=== PATIENT | female | born 1955 | race Caucasian/White ===

== ENCOUNTER 2017-10-28 22:16 | Inpatient (IN) ==
[2017-10-29] MEDS ORDERED: Sod Chloride 0.9% Inj 1,000 ML IV.SIG ONE (00:18)
--- NOTE | 2017-10-29 00:22 | ED ---
HPI General Chief complaint: Nausea/Vomiting/Diarrhea Stated complaint: Vomitting x1Day Time Seen by Provider: 10/29/17 00:18 Source: patient Mode of arrival: ambulatory Limitations: no limitations History of Present Illness HPI Narrative: Well-developed well-nourished female in no acute distress no respiratory distress presents because of multiple episodes of vomiting today. No fever no chills patient has had nausea has had vomiting no coffee-ground emesis no hematemesis has noted some bilious emesis. No diarrhea no constipation. Patient's had good urine output. Patient has history of previous colon cancer with partial resection and cholecystectomy and appendectomy. Patient denies chest pain shortness of breath referred neck jaw back shoulder arm pain. Patient states she has had colonoscopy and double balloon enteroscopy. Patient states studies were unremarkable. Patient reports that 1 day she has had vomiting and contacted her [facility] physician who stated she was most likely dehydrated and she go to the hospital for hydration. Patient's had multiple abdominal surgeries. Patient describes emesis as bilious not fecal. Patient denies other concerns or complaints. Discomfort is moderate. MD complaint: nausea and vomiting Onset (ago): day(s) Description of Vomiting: bilious Description of Diarrhea: none Associated Abdominal Pain: Yes Location of pain: diffuse, LUQ and LLQ Severity: moderate Pain Consistency: constant Relieving factors: none Exacerbating factors: none Associated symptoms: denies other symptoms Related Data Home Medications Medication Instructions Recorded Confirmed No Known Home Medications 10/28/17 10/28/17 Allergies Allergy/AdvReac Type Severity Reaction Status Date / Time propoxyphene [From Darvon] AdvReac Vomiting Verified 10/28/17 23:41 Review of Systems ROS: all other systems reviewed are negative PMFSH History History Provided By: Patient (Colon cancer partial colectomy cholecystectomy appendectomy) Social History Social History Second Hand Smoke Exposure: No Smoking Status: Never smoker How Often Do You Have a Drink Containing Alcohol: Never Recent Travel in [place] within the Last 8 Weeks: No Recent Out of Country Travel within the Last 8 Weeks: No Immunization History Tetanus Immunization: <5 Years Exam Narrative Exam Narrative: GENERAL: Well-nourished, well-developed patient. SKIN: Focused skin assessment warm/dry. HEAD: Normocephalic. EYES: No scleral icterus. No injection or drainage. NECK: Supple, trachea midline. No JVD or lymphadenopathy. CARDIOVASCULAR: Regular rate and rhythm without murmurs, gallops, or rubs. RESPIRATORY: Breath sounds equal bilaterally. No accessory muscle use. GASTROINTESTINAL: Abdomen soft, mild diffuse tenderness to palpation without guarding or rebound or palpable pulsatile mass , nondistended. MUSCULOSKELETAL: No cyanosis, or edema. BACK: Nontender without obvious deformity. No CVA tenderness. Course Initial Documented Vital Signs Temperature 97.9 F 10/28/17 22:23 Pulse Rate 101 H 10/28/17 22:23 Respiratory Rate 14 10/28/17 22:23 Blood Pressure 132/69 10/28/17 22:23 Pulse Oximetry 98 10/28/17 22:23 Last Documented Vital Signs Temperature 97.9 F 10/28/17 22:23 Pulse Rate 101 H 10/28/17 22:23 Respiratory Rate 14 10/28/17 22:23 Blood Pressure 132/69 10/28/17 22:23 Pulse Oximetry 98 10/28/17 22:23 Medical Decision Making MDM Narrative Medical decision making narrative: 62-year-old female presents with 1 day of vomiting IV access obtained specimens collected and sent for resulting Patient administered IV fluid bolus and Zofran Patient given additional IV fluid bolus Patient complains of ongoing nausea and Reglan 10 mg a CBC is automated differential chemistries grossly normal range CT scan abdomen pelvis with IV contrast consistent with small bowel obstruction per reading radiologist Patient's case discussed with him Medical Screen Exam Complete: Yes Emergency Medical Condition: Yes Differential Diagnosis Differential Diagnosis: Bowel obstruction, dehydration, gastroenteritis, electrolyte disturbance, UTI, ischemic colitis, ACS Medical Records Medical records reviewed: Yes I reviewed the patient's medical records. Lab Data Lab results reviewed: Yes I reviewed the patient's lab results. Result diagrams: 10/29/17 00:22 10/29/17 00:22 Lab Results 10/28/17 10/29/17 10/29/17 Range/Units 00:24 00:22 00:22 CBC w Diff Auto diff final WBC 9.7 (4.0-11.0) th/mm3 RBC 4.15 (4.00-5.30) mil/mm3 Hgb 13.4 (11.6-15.3) gm/dL Hct 38.7 (35.0-46.0) % MCV 93.3 (80.0-100.0) fL MCH 32.4 (27.0-34.0) pg MCHC 34.7 (32.0-36.0) % RDW 12.6 (11.6-17.2) % Plt Count 375 (150-450) th/mm3 MPV 8.5 (7.0-11.0) fL Neut % (Auto) 81.0 H (16.0-70.0) % Lymph % (Auto) 11.7 (9.0-44.0) % [place] % (Auto) 6.7 (0.0-8.0) % Eos % (Auto) 0.5 (0.0-4.0) % Baso % (Auto) 0.1 (0.0-2.0) % Neut # (Auto) 7.9 H (1.8-7.7) th/mm3 Lymph # (Auto) 1.1 (1.0-4.8) th/mm3 [place] # (Auto) 0.7 (0.0-0.9) th/mm3 Eos # (Auto) 0.0 (0.0-0.4) th/mm3 Baso # (Auto) 0.0 (0.0-0.2) th/mm3 WBC Differential . Differential Comment . Sodium 135 L (136-145) meq/L Potassium 3.7 (3.5-5.1) meq/L Chloride 98 (98-107) meq/L Carbon Dioxide 26.4 (21.0-32.0) meq/L Anion Gap 11 (5-15) meq/L BUN 13 (7-18) mg/dL Creatinine 0.62 (0.50-1.00) mg/dL Estimated GFR Greater than 89 (>89) mL/min Random Glucose 93 (74-106) mg/dL Calcium 9.4 (8.5-10.1) mg/dL Total Bilirubin 0.6 (0.2-1.0) mg/dL AST 26 (15-37) U/L ALT 35 (10-53) U/L Alkaline Phosphatase 87 (45-117) U/L Troponin I Less than 0.02 L (0.02-0.05) ng/mL Total Protein 7.8 (6.4-8.2) g/dL Albumin 4.2 (3.4-5.0) g/dL Lipase 190 (73-393) U/L Urine Color Yellow (Yellw/Straw) Urine Clarity Clear (Clear) Urine pH 6.0 (5.0-8.5) Ur Specific [place] 1.020 (1.002-1.035) Urine Protein Trace (Neg-Trace) mg/dL Urine Glucose (UA) Negative (Negative) mg/dL Urine Ketones 40 H (Negative) mg/dL Urine Occult Blood Negative (Negative) Urine Nitrate Negative (Negative) Urine Bilirubin Negative (Negative) Urine Urobilinogen 0.2 (Less than 2) mg/dL Ur Leukocyte Esterase Moderate H (Negative) Urine RBC 0-3 (0-3) /hpf Urine WBC 6-8 H (0-5) /hpf Ur Squamous Epith Cells 0-5 (0-5) /hpf Amorphous Sediment Occ H (None) /hpf Hyaline Casts 0-3 (0-3) /lpf Urine Yeast Occasional H (None) /hpf Micro UA Comment Culture not ind Ur Microscopic Review Microscopic reviewed Urine Culture Comments Culture not ind Imaging Data Radiologist's impression: Abdomen/Pelvis CT 10/29/17 00:18 CONCLUSION: 1. Abnormally dilated loops of small bowel with air-fluid levels measuring up to 5 cm in size, suspicious for small bowel obstruction. 2. Multiple low density lesions in the liver measuring up to 2.9 cm. Evidence of right colon surgery. If there is history of colon cancer, these lesions would be suspicious for metastatic disease. Chest X-Ray 10/29/17 00:18 CONCLUSION: The lungs are clear. Discharge Plan Discharge Disposition Patient Disposition: 30 Still Patient Discharge Condition Condition: Stable Discharge Details Diagnosis: SBO (small bowel obstruction) Physicians Team ED Provider: Sammi Contreras Attending Provider: Abbey Borjas Other Providers: Markus Newman Status ED Status: Admitted Patient
[2017-10-29 00:36] LABS: Bilirubin,Urine Negative (Negative); Clarity,Urine Clear (Clear); Color,Urine Yellow (Yellw/Straw); Glucose,Urine (UA) Negative (Negative); Leukocyte Esterase,Urine Moderate (Negative); Nitrite,Urine Negative (Negative); Urobilinogen,Urine 0.2 mg/dL (Less than 2)
[2017-10-29 00:37] LABS: Baso % (Auto) 0.1 % (0.0-2.0); Eos % (Auto) 0.5 % (0.0-4.0); Hematocrit 38.7 % (35.0-46.0); Hemoglobin 13.4 gm/dL (11.6-15.3); Lymph # (Auto) 1.1 th/mm3 (1.0-4.8); Lymph % (Auto) 11.7 % (9.0-44.0); Mean Corpuscular HGB Conc 34.7 % (32.0-36.0); Mean Corpuscular Hemoglobin 32.4 pg (27.0-34.0); Mean Corpuscular Volume 93.3 fL (80.0-100.0); Mean Platelet Volume 8.5 fL (7.0-11.0); Mono # (Auto) 0.7 th/mm3 (0.0-0.9); Mono % (Auto) 6.7 % (0.0-8.0); Neut # (Auto) 7.9 th/mm3 (1.8-7.7); Platelet Count 375 th/mm3 (150-450); Red Blood Count 4.15 mil/mm3 (4.00-5.30); Red Cell Distribution Width 12.6 % (11.6-17.2); White Blood Count 9.7 th/mm3 (4.0-11.0)
[2017-10-29 00:43] LABS: Chloride 98 meq/L (98-107); Potassium 3.7 meq/L (3.5-5.1); Sodium 135 meq/L (136-145)
[2017-10-29 00:47] LABS: Albumin 4.2 g/dL (3.4-5.0); Anion Gap 11 meq/L (5-15); Blood Urea Nitrogen 13 mg/dL (7-18); Calcium 9.4 mg/dL (8.5-10.1); Carbon Dioxide 26.4 meq/L (21.0-32.0); Glucose,Random 93 mg/dL (74-106); Lipase 190 U/L (73-393)
[2017-10-29 00:48] LABS: Amorphous Sediment,Urine Occ /hpf; Hyaline Casts,Urine 0-3 /lpf (0-3); RBC,Urine 0-3 /hpf (0-3); Squamous Epithelial Cell,Urine 0-5 /hpf (0-5)
[2017-10-29 00:50] LABS: Alanine Aminotransferase 35 U/L (10-53); Aspartate Aminotransferase 26 U/L (15-37); Glomerular Filtration Rate Greater Than 89 mL/min (>89)
--- NOTE | 2017-10-29 00:50 | XR ---
EXAM DATE: 10/29/2017 12:46 AM EDT AGE/SEX: 62 years / Female INDICATIONS: Free air. CLINICAL DATA: This is the patient's initial encounter. Patient reports that signs and symptoms have been present for 1 day and indicates a pain score of 0/10. MEDICAL/SURGICAL HISTORY: None. Appendectomy. COMPARISON: No prior exams available for comparison. FINDINGS: A single AP view of the chest demonstrates the lungs to be symmetrically aerated without evidence of mass, infiltrate or effusion. The cardiomediastinal contours are unremarkable. Osseous structures a re intact. No evidence of free air underneath the MA diaphragms. CONCLUSION: The lungs are clear. Electronically signed by: Jace Deleon MD 10/29/2017 12:49 AM EDT
[2017-10-29 00:52] LABS: Total Protein 7.8 g/dL (6.4-8.2)
[2017-10-29 00:53] LABS: Alkaline Phosphatase 87 U/L (45-117)
--- NOTE | 2017-10-29 01:57 | CT ---
EXAM DATE: 10/29/2017 1:32 AM EDT AGE/SEX: 62 years / Female INDICATIONS: Left sided abdominal pain, and vomiting. CLINICAL DATA: This is the patient's initial encounter. Patient reports that signs and symptoms have been present for 1 day and indicates a pain score of 4/10. MEDICAL/SURGICAL HISTORY: None. Cholecystectomy. Colon resection. ORAL CONTRAST: No oral contrast ingested. RADIATION DOSE: 6.62 CTDI (mGy) COMPARISON: No prior exams available for comparison. TECHNIQUE: Multiple contiguous axial images were obtained through the abdomen and pelvis following b olus infusion of 93 ml Omnipaque 350 (iohexol) nonionic water-soluble contrast as a single exam dos e. No oral contrast ingested. Using automated exposure control and adjustment of the mA and/or kV ac cording to patient size, radiation dose was kept as low as reasonably achievable to obtain optimal di agnostic quality images. DICOM format image data is available electronically for review and comparis on. FINDINGS: Lower Lungs: The visualized lower lungs are clear. Liver: There are multiple low density lesions in the liver, the 2 largest located in the posterior se gment of the right lobe measuring 2.9 cm and 2.0 cm. There is also ill-defined focal calcific densiti es in the posterior segment of the liver tip which measure in aggregate. 1.2 cm. No biliary ductal di latation. Cholecystectomy. Spleen: Homogeneous density without enlargement. Pancreas: Unremarkable without mass or calcification. Kidneys: Normal in size and shape. No evidence of mass or hydronephrosis. 2.2 cm cyst upper pole rig ht kidney. Adrenal Glands: Unremarkable. Aorta: The aorta and proximal iliac vessels are grossly unremarkable without aneurysmal dilation. Bowel/Mesentery: Abnormally dilated loops of small bowel with air-fluid levels with small bowel loop s measuring up to 5 cm in size. No dilation of the colon. Mild amount of stool in the transverse and left colon. Anastomosis suture in the right upper quadrant. There is a moderate amount of free fluid in the dependent pelvis. Abdominal Wall: Intact. Retroperitoneum: No evidence of adenopathy in the retrocrural, para-aortic, or deep pelvic regions. Bladder: Contours are smooth. Reproductive Organs: No abnormal masses or calcifications seen. Inguinal: The inguinal region is unremarkable without evidence of adenopathy. Bony Structures: Bilateral pars defects at L5 without evidence of spondylolisthesis. CONCLUSION: 1. Abnormally dilated loops of small bowel with air-fluid levels measuring up to 5 cm in size, suspi cious for small bowel obstruction. 2. Multiple low density lesions in the liver measuring up to 2.9 cm. Evidence of right colon surgery . If there is history of colon cancer, these lesions would be suspicious for metastatic disease. Electronically signed by: Jace Dleeon MD 10/29/2017 1:55 AM EDT
[2017-10-29] MEDS ORDERED: Bisacodyl 10 MG Supp RECTAL PRN (02:46)
[2017-10-29] MEDS ORDERED: Morphine Inj 4 MG/ML Vial IV.PUSH ONE ×2 (02:53→06:46)
[2017-10-29] MEDS ORDERED: Sodium Chlor 0.9% Inj 500 ML IV.SIG SCH (03:00)
[2017-10-29] MEDS: Sod Chloride 0.9% Inj 1,000 ML IV.CONT SCH ×3 (03:30→23:45)
[2017-10-29] MEDS: Piperacil/Tazo 4.5 GM Premix 4.5 GM/100 ML BAG IV.SIG SCH ×4 (03:30→21:00)
--- NOTE | 2017-10-29 08:42 | P.HP ---
History of Present Illness Primary Care Physician: Rocky Duncan Chief Complaint: Nausea, vomiting History of Present Illness: 62-year-old female with known history of colon cancer with partial colectomy, history of liver lesions in which she is being followed by [facility]. Patient states that she is in normal state of health until yesterday when she started developing nausea, vomiting, abdominal pain. Patient was only able to try to tolerate liquids, however she was unsuccessful and was unable to keep anything down so she came to emergency department for evaluation. Patient had workup done and was found to have a small bowel obstruction. CT scan also elicited multiple lesions on the liver. Patient states that she is followed by [facility] and gets monitored frequently. Patient states that she has had multiple liver lesions in the past and states that at [facility] they did ablation and biopsy. She is notified that they were benign lesions. She is just at [facility] and had MRI evaluation done in July of this year and was told that there were no new lesions. Upon evaluating the patient today she is laying in bed. Obvious discomfort from the bowel obstruction. Patient states that at a different hospital they had tried to place an NG tube but were unsuccessful. Patient is deferring NG tube at this time. Patient states that she had a small bowel movement yesterday. States that her bowels are quite irregular and can tell me if that was normal for her or not. Patient denies any hematemesis, melena, hematochezia. - Diagnosis (1) Liver lesion (2) SBO (small bowel obstruction) Inpatient Certification: I certify that the inpatient services were ordered in accordance with Medicare regulations governing the order. This includes certification that hospital inpatient services are reasonable and necessary and in the case of services not specified as inpatient-only under 42 CFR 419.22(n), that they are appropriately provided as inpatient services in accordance to with the 2-midnight benchmark under 43 CFR 412.3(e) Estimated Total Length of Stay (Days): 2 Plans for Post Hospital Care: Not yet determined Review of Systems All other systems reviewed negative except as stated in HPI Gastrointestinal: Reports abdominal pain, Reports nausea, Reports vomiting PMFSH - History History Provided By: Patient (Colon cancer partial colectomy cholecystectomy appendectomy) - Medical History Medical History: Medical History (Last Reviewed 10/29/17 @ 08:42 by YOHANNES Baxter) Colon cancer History of chemotherapy Liver lesion - Surgical History Surgical History: Surgical History (Last Reviewed 10/29/17 @ 08:42 by YOHANNES Baxter) History of appendectomy History of cholecystectomy History of partial colectomy History of total adrenalectomy - Family History Family History: Family History (Last Updated 10/29/17 @ 08:28 by YOHANNES Baxter) Father History of lung cancer Mother Family history of Alzheimer's disease - Tobacco History Second Hand Smoke Exposure: No Tobacco Use In Past 30 Days: No Smoking Status: Never smoker - Alcohol History How Often Do You Have a Drink Containing Alcohol: Never - Substance Use History Substance History: No History of Abuse - Travel History Recent Travel in the [place] Within the Last 8 Weeks: No Recent Travel Out of the Country Within the Last 8 Weeks: No - Immunization History Tetanus Immunization: <5 Years Medications and Allergies Active Medications: Active Medications Al Hydroxide/Mg Hydroxide (Milk Of Magnesia Liq) 30 ml PO Q12H PRN PRN Reason: Mild Constipation Bisacodyl (Dulcolax Supp) 10 mg RECTAL DAILY PRN PRN Reason: SEVERE CONSITIPATION Sodium Chloride (Ns Inj) 1,000 mls @ 100 mls/hr IV.CONT .Q10H ESTELITA Last Infusion: 10/29/17 04:20 Dose: Infused Piperacillin/Tazobactam/Dextrose (Zosyn 4.5 Gm Premix) 4.5 gm in 100 mls @ 200 mls/hr IV.SIG Q6H ESTELITA Last Infusion: 10/29/17 04:19 Dose: Infused Sodium Chloride (Ns Inj) 500 mls @ 0 mls/hr IV.SIG BOLUS ESTELITA Lactulose (Lactulose Liq) 30 ml PO DAILY PRN PRN Reason: SEVERE CONSITIPATION Metoclopramide HCl (Reglan Inj) 5 mg IV.PUSH Q6HR PRN; Protocol PRN Reason: NAUSEA OR VOMITING Morphine Sulfate (Morphine Inj) 2 mg IV.PUSH Q3H PRN PRN Reason: abd pain 6-10 Ondansetron HCl (Zofran Inj) 4 mg IV.PUSH Q6H PRN PRN Reason: NAUSEA OR VOMITING Last Admin: 10/29/17 06:48 Dose: 4 mg Senna/Docusate Sodium (Lesley-Colace) 1 tab PO BID ESTELITA Sennosides (Senokot) 17.2 mg PO Q12H PRN PRN Reason: Moderate Constipation Sodium Chloride (Ns Flush) 2 ml IV.FLUSH PRN PRN PRN Reason: FLUSH AFTER USING IV ACCESS Allergies Allergy/AdvReac Type Severity Reaction Status Date / Time propoxyphene [From Darvon] AdvReac Vomiting Verified 10/28/17 23:41 Home Medications Medication Instructions Recorded Confirmed Type No Known Home Medications 10/28/17 10/28/17 History Exam Vital signs: Vital Signs 10/28/17 22:23 10/29/17 04:00 10/29/17 07:32 Temperature 97.9 F 98.1 F 97.9 F Pulse Rate 101 H 78 84 Respiratory Rate 14 20 20 Blood Pressure 132/69 122/75 145/76 H Pulse Oximetry 98 97 98 Intake & Output 10/28/17 10/29/17 10/29/17 18:59 06:59 18:59 Intake Total 2099 / 2100 Output Total 0 / 0 Balance 2099 / 2099 Weight 30.028 kg Intake: IV 2100 / 2100 NS Inj 1,000 ML @ 100 mls/hr IV 1000 / 1000 .CONT .Q10H ESTELITA Rx#:[id number] Zosyn 4.5 GM Premix 4.5 gm In 100 / 100 100 ml @ 200 mls/hr IV.SIG Q6H ESTELITA Rx#:[id number] NS Inj 1,000 ML @ Wide Open IV. 1000 / 1000 SIG BOLUS ONE Rx#:[id number] Oral 0 / 0 Output: Urine 0 / 0 Other: Weight On Admission 2.495 kg Narrative: GENERAL: Well-developed, well-nourished, in no acute distress. alert and orientated HEENT: Head is normocephalic without any lesions or masses noted. Facial features are symmetric. Eyes: Pupils equal round reactive to light. Extraocular muscles are intact. Conjunctivae were clear. Oropharyngeal: Pharynx without any erythema edema. Tongue is midline without deviation. Buccal mucosa is moist without any masses or lesions NECK: Supple without any masses. Trachea midline no deviation. No JVD, no bruits are appreciated CARDIAC: Regular rhythm, regular rate. S1/S2 are heard. No murmurs gallops or rubs. LUNGS: Clear to auscultation bilaterally. No wheeze, rhonchi or rales. No use of accessory muscles on inspiration or expiration. ABDOMEN: Soft, diffuse tenderness noted throughout. Nondistended. Bowel sounds are hyperactive in all areas no organomegaly or masses. Negative rebound, negative guarding EXTREMITIES: No edema, pulses are equal bilaterally. No cyanosis or clubbing NEUROLOGY: Mood and affect appear appropriate. Cranial nerves II through XII grossly intact. Muscle strength 5/5 in upper and lower extremities bilaterally. Deep tendon reflexes are 2+ in upper and lower extremities bilaterally. Results - Labs CBC & Chem 7: 10/29/17 00:22 10/29/17 00:22 Labs: Laboratory Results - last 24 hr 10/28/17 10/29/17 10/29/17 00:24 00:22 00:22 CBC w Diff Auto diff final WBC 9.7 RBC 4.15 Hgb 13.4 Hct 38.7 MCV 93.3 MCH 32.4 MCHC 34.7 RDW 12.6 Plt Count 375 MPV 8.5 Neut % (Auto) 81.0 H Lymph % (Auto) 11.7 [place] % (Auto) 6.7 Eos % (Auto) 0.5 Baso % (Auto) 0.1 Neut # (Auto) 7.9 H Lymph # (Auto) 1.1 [place] # (Auto) 0.7 Eos # (Auto) 0.0 Baso # (Auto) 0.0 WBC Differential . Differential Comment . Sodium 135 L Potassium 3.7 Chloride 98 Carbon Dioxide 26.4 Anion Gap 11 BUN 13 Creatinine 0.62 Estimated GFR Greater than 89 Random Glucose 93 Calcium 9.4 Total Bilirubin 0.6 AST 26 ALT 35 Alkaline Phosphatase 87 Troponin I Less than 0.02 L Total Protein 7.8 Albumin 4.2 Lipase 190 Urine Color Yellow Urine Clarity Clear Urine pH 6.0 Ur Specific [place] 1.020 Urine Protein Trace Urine Glucose (UA) Negative Urine Ketones 40 H Urine Occult Blood Negative Urine Nitrate Negative Urine Bilirubin Negative Urine Urobilinogen 0.2 Ur Leukocyte Esterase Moderate H Urine RBC 0-3 Urine WBC 6-8 H Ur Squamous Epith Cells 0-5 Amorphous Sediment Occ H Hyaline Casts 0-3 Urine Yeast Occasional H Micro UA Comment Culture not ind Ur Microscopic Review Microscopic reviewed Urine Culture Comments Culture not ind - Imaging Impressions Abdomen/Pelvis CT 10/29/17 00:18 CONCLUSION: 1. Abnormally dilated loops of small bowel with air-fluid levels measuring up to 5 cm in size, suspicious for small bowel obstruction. 2. Multiple low density lesions in the liver measuring up to 2.9 cm. Evidence of right colon surgery. If there is history of colon cancer, these lesions would be suspicious for metastatic disease. Chest X-Ray 10/29/17 00:18 CONCLUSION: The lungs are clear. Caprini VTE Risk Assessment Caprini VTE Risk Assessment: No/Low Risk (score <= 1) Caprini Risk Assessment Model: Point Value = 1 Point Value = 2 Point Value = 3 Point Value = 5 Age 41-60 Minor surgery BMI > 25 kg/m2 Swollen legs Varicose veins or History of unexplained or recurrent spontaneous Oral contraceptives or hormone replacement Sepsis (< 1 month) Serious lung disease, including pneumonia (< 1 month) Abnormal pulmonary function Acute myocardial infarction Congestive heart failure (< 1 month) History of inflammatory bowel disease Medical patient at bed rest Age 61-74 Arthroscopic surgery Major open surgery (> 45 min) Laparoscopic surgery (> 45 min) Malignancy Confined to bed (> 72 hours) Immobilizing plaster cast Central venous access Age >= 75 History of VTE Family history of VTE Factor V Leiden Prothrombin [id number] Lupus anticoagulant Anticardiolipin antibodies Elevated serum homocysteine Heparin-induced thrombocytopenia Other congenital or acquired thrombophilia Stroke (< 1 month) Elective arthroplasty Hip, pelvis, or leg fracture Acute spinal cord injury (< 1 month) Prophylaxis Regimen: Total Risk Factor Score Risk Level Prophylaxis Regimen 0-1 Low Early ambulation 2 Moderate Order ONE of the following: *Sequential Compression Device (SCD) *Heparin 5000 units SQ BID 3-4 Higher Order ONE of the following medications: *Heparin 5000 units SQ TID *Enoxaparin/Lovenox 40 mg SQ daily (WT < 150 kg, CrCl > 30 mL/min) *Enoxaparin/Lovenox 30 mg SQ daily (WT < 150 kg, CrCl > 10-29 mL/min) *Enoxaparin/Lovenox 30 mg SQ BID (WT < 150 kg, CrCl > 30 mL/min) AND/OR *Sequential Compression Device (SCD) 5 or more Highest Order ONE of the following medications: *Heparin 5000 units SQ TID (Preferred with Epidurals) *Enoxaparin/Lovenox 40 mg SQ daily (WT < 150 kg, CrCl > 30 mL/min) *Enoxaparin/Lovenox 30 mg SQ daily (WT < 150 kg, CrCl > 10-29 mL/min) *Enoxaparin/Lovenox 30 mg SQ BID (WT < 150 kg, CrCl > 30 mL/min) AND *Sequential Compression Device (SCD) Assessment and Plan - Assessment (1) Liver lesion Code(s): K76.9 - Liver disease, unspecified Status: Acute (2) SBO (small bowel obstruction) Code(s): K56.609 - Unspecified intestinal obstruction, unspecified as to partial versus complete obstruction Status: Acute - Plan Small bowel obstruction -Likely secondary to previous abdominal surgeries -Continue supportive care and bowel rest -Keep patient n.p.o., IV fluids, pain control -Patient continued on Zosyn -General surgery consulted for further recommendations -Monitor abdominal x-rays -If patient does not improve, may need interventional radiology to place NG tube Multiple liver lesions -Patient does have history of colon cancer and liver lesions -Patient is followed by [facility] in which has been following her liver lesions for 2 years DVT prevention -Sequential compression devices
[2017-10-29] MEDS: Morphine Inj 4 MG/ML Vial IV.PUSH PRN ×4 (09:15→20:15)
[2017-10-29] MEDS: Senna/Docusate Sodium 8.6/50 MG Tablet PO SCH ×2 (09:16→21:29)
--- NOTE | 2017-10-29 09:38 | XR ---
EXAM DATE: 10/29/2017 9:07 AM EDT AGE/SEX: 62 years / Female INDICATIONS: Abdomen pain, nausea and vomiting CLINICAL DATA: This is the patient's initial encounter. Patient reports that signs and symptoms have been present for 2 days and indicates a pain score of 6/10. MEDICAL/SURGICAL HISTORY: None. Appendectomy. COMPARISON: No prior exams available for comparison. FINDINGS: 2 views of the abdomen demonstrate dilation of small bowel with air-fluid levels consistent with smal l bowel obstruction. Surgical clips overlie the right upper quadrant. The lung bases are clear. CONCLUSION: Findings compatible with small bowel obstruction. No evidence of free air. Electronically signed by: Brittany Bauer MD 10/29/2017 9:36 AM EDT
--- NOTE | 2017-10-29 15:14 | P.CONGS ---
[facility] Gen Surgery Consult Note Consult date: 10/29/17 Reason for consult: other (Nausea and vomiting questionable small bowel obstruction) Narrative: CONSULTATION NOTE FOR SURGICAL ATTENDING, DR. SUKHDEEP FOSETR Patient was admitted to the hospital recently for abdominal discomfort nausea and vomiting. She had previous colon cancer surgery at the [facility] last year. She has been followed and treated for some liver lesions most recently having an MRI showing the 3 liver lesions. She called the emergency room at the [facility] describing her symptomatology and they told her come to the emergency room to be admitted for small bowel obstruction She underwent imaging and admitted to the hospital with the consultation placed for surgery Since being in the hospital she has felt a little better. She can have an NG tube placed as in the past it is very painful and they could not place it because of previous nasal surgery Review of Systems All other systems reviewed negative except as stated in [facility] - History History Provided By: Patient (Colon cancer partial colectomy cholecystectomy appendectomy) - Medical History Medical History: Medical History (Last Reviewed 10/29/17 @ 18:05 by Sukhdeep Foster MD) Colon cancer History of chemotherapy - Surgical History Surgical History: Surgical History (Last Reviewed 10/29/17 @ 18:05 by Sukhdeep Foster MD) History of appendectomy History of cholecystectomy History of partial colectomy History of total adrenalectomy - Family History Family History: Family History (Last Reviewed 10/29/17 @ 18:05 by Sukhdeep Foster MD) Father History of lung cancer Mother Family history of Alzheimer's disease - Tobacco History Second Hand Smoke Exposure: No Tobacco Use In Past 30 Days: No Smoking Status: Never smoker - Alcohol History How Often Do You Have a Drink Containing Alcohol: Never - Substance Use History Substance History: No History of Abuse - Travel History Recent Travel in the [place] Within the Last 8 Weeks: No Recent Travel Out of the Country Within the Last 8 Weeks: No - Immunization History Tetanus Immunization: <5 Years Medications and Allergies Active Medications: Active Medications Al Hydroxide/Mg Hydroxide (Milk Of Magnesia Liq) 30 ml PO Q12H PRN PRN Reason: Mild Constipation Bisacodyl (Dulcolax Supp) 10 mg RECTAL DAILY PRN PRN Reason: SEVERE CONSITIPATION Sodium Chloride (Ns Inj) 1,000 mls @ 100 mls/hr IV.CONT .Q10H ESTELITA Last Admin: 10/29/17 14:48 Dose: 100 mls/hr Piperacillin/Tazobactam/Dextrose (Zosyn 4.5 Gm Premix) 4.5 gm in 100 mls @ 200 mls/hr IV.SIG Q6H ESTELITA Last Infusion: 10/29/17 10:09 Dose: Infused Sodium Chloride (Ns Inj) 500 mls @ 0 mls/hr IV.SIG BOLUS ESTELITA Lactulose (Lactulose Liq) 30 ml PO DAILY PRN PRN Reason: SEVERE CONSITIPATION Metoclopramide HCl (Reglan Inj) 5 mg IV.PUSH Q6HR PRN; Protocol PRN Reason: NAUSEA OR VOMITING Morphine Sulfate (Morphine Inj) 2 mg IV.PUSH Q3H PRN PRN Reason: abd pain 6-10 Last Admin: 10/29/17 12:53 Dose: 2 mg Ondansetron HCl (Zofran Inj) 4 mg IV.PUSH Q6H PRN PRN Reason: NAUSEA OR VOMITING Last Admin: 10/29/17 12:54 Dose: 4 mg Senna/Docusate Sodium (Lesley-Colace) 1 tab PO BID ESTELITA Last Admin: 10/29/17 09:16 Dose: 1 tab Sennosides (Senokot) 17.2 mg PO Q12H PRN PRN Reason: Moderate Constipation Sodium Chloride (Ns Flush) 2 ml IV.FLUSH PRN PRN PRN Reason: FLUSH AFTER USING IV ACCESS Allergies Allergy/AdvReac Type Severity Reaction Status Date / Time propoxyphene [From Darvon] AdvReac Vomiting Verified 10/28/17 23:41 Home Medications Medication Instructions Recorded Confirmed Type No Known Home Medications 10/28/17 10/28/17 History Exam Vital signs: Vital Signs 10/28/17 22:23 10/29/17 04:00 10/29/17 06:45 Temperature 97.9 F 98.1 F Pulse Rate 101 H 78 Respiratory Rate 14 20 20 Blood Pressure 132/69 122/75 Pulse Oximetry 98 97 10/29/17 07:32 10/29/17 10:03 10/29/17 11:30 Temperature 97.9 F 97.8 F Pulse Rate 84 79 Respiratory Rate 20 20 20 Blood Pressure 145/76 H 124/68 Pulse Oximetry 98 100 10/29/17 14:47 Temperature Pulse Rate Respiratory Rate 20 Blood Pressure Pulse Oximetry Intake & Output 10/28/17 10/29/17 10/29/17 18:59 06:59 18:59 Intake Total 2099 / 2099 100 / 100 Output Total 0 / 0 Balance 2099 / 2099 100 / 100 Weight 30.028 kg Intake: IV 2100 / 2100 100 / 100 NS Inj 1,000 ML @ 100 mls/hr IV 1000 / 1000 .CONT .Q10H ESTELITA Rx#:[id number] Zosyn 4.5 GM Premix 4.5 gm In 100 / 100 100 / 100 100 ml @ 200 mls/hr IV.SIG Q6H ESTELITA Rx#:[id number] NS Inj 1,000 ML @ Wide Open IV. 1000 / 1000 SIG BOLUS ONE Rx#:[id number] Oral 0 / 0 Output: Urine 0 / 0 Other: Weight On Admission 2.495 kg Narrative: Patient sitting up in bed Family at bedside Neck is supple Franco placed NG tube because of nasal surgery in the past chest is clear heart regular rate abdomen soft with good bowel sounds throughout minimal discomfort surgical scar right upper quadrant from cholecystectomy laparoscopic scars from adrenalectomy and colon surgery scars Extremities moves all extremities well able to sit up Neurologic follows all commands no focal deficits Results - Labs 10/29/17 00:22 10/29/17 00:22 Abnormal lab results 10/28/17 10/29/17 10/29/17 Range/Units 00:24 00:22 00:22 Neut % (Auto) 81.0 H (16.0-70.0) % Neut # (Auto) 7.9 H (1.8-7.7) th/mm3 Sodium 135 L (136-145) meq/L Troponin I Less than 0.02 L (0.02-0.05) ng/mL Urine Ketones 40 H (Negative) mg/dL Ur Leukocyte Esterase Moderate H (Negative) Urine WBC 6-8 H (0-5) /hpf Amorphous Sediment Occ H (None) /hpf Urine Yeast Occasional H (None) /hpf Diabetes panel 10/29/17 Range/Units 00:22 Sodium 135 L (136-145) meq/L Potassium 3.7 (3.5-5.1) meq/L Chloride 98 (98-107) meq/L Carbon Dioxide 26.4 (21.0-32.0) meq/L BUN 13 (7-18) mg/dL Creatinine 0.62 (0.50-1.00) mg/dL Calcium 9.4 (8.5-10.1) mg/dL AST 26 (15-37) U/L ALT 35 (10-53) U/L Alkaline Phosphatase 87 (45-117) U/L Total Protein 7.8 (6.4-8.2) g/dL Albumin 4.2 (3.4-5.0) g/dL Calcium panel 10/29/17 Range/Units 00:22 Calcium 9.4 (8.5-10.1) mg/dL Albumin 4.2 (3.4-5.0) g/dL Pituitary panel 10/29/17 Range/Units 00:22 Sodium 135 L (136-145) meq/L Potassium 3.7 (3.5-5.1) meq/L Chloride 98 (98-107) meq/L Carbon Dioxide 26.4 (21.0-32.0) meq/L BUN 13 (7-18) mg/dL Creatinine 0.62 (0.50-1.00) mg/dL Calcium 9.4 (8.5-10.1) mg/dL Adrenal panel 10/29/17 Range/Units 00:22 Sodium 135 L (136-145) meq/L Potassium 3.7 (3.5-5.1) meq/L Chloride 98 (98-107) meq/L Carbon Dioxide 26.4 (21.0-32.0) meq/L BUN 13 (7-18) mg/dL Creatinine 0.62 (0.50-1.00) mg/dL Calcium 9.4 (8.5-10.1) mg/dL Total Bilirubin 0.6 (0.2-1.0) mg/dL AST 26 (15-37) U/L ALT 35 (10-53) U/L Alkaline Phosphatase 87 (45-117) U/L Total Protein 7.8 (6.4-8.2) g/dL Albumin 4.2 (3.4-5.0) g/dL All other labs normal. - Imaging Abdominal x-ray: report reviewed, image reviewed CT scan - abdomen: report reviewed, image reviewed CT scan - pelvis: report reviewed, image reviewed Additional studies: ITS Impressions Abdomen/Pelvis CT 10/29/17 00:18 CONCLUSION: 1. Abnormally dilated loops of small bowel with air-fluid levels measuring up to 5 cm in size, suspicious for small bowel obstruction. 2. Multiple low density lesions in the liver measuring up to 2.9 cm. Evidence of right colon surgery. If there is history of colon cancer, these lesions would be suspicious for metastatic disease. Chest X-Ray 10/29/17 00:18 CONCLUSION: The lungs are clear. Abdomen X-Ray 10/29/17 08:31 CONCLUSION: Findings compatible with small bowel obstruction. No evidence of free air. Laboratory Last Values CBC w Diff Auto diff final 10/29/17 00:22 WBC 9.7 th/mm3 (4.0-11.0) 10/29/17 00:22 RBC 4.15 mil/mm3 (4.00-5.30) 10/29/17 00:22 Hgb 13.4 gm/dL (11.6-15.3) 10/29/17 00:22 Hct 38.7 % (35.0-46.0) 10/29/17 00:22 MCV 93.3 fL (80.0-100.0) 10/29/17 00:22 MCH 32.4 pg (27.0-34.0) 10/29/17 00:22 MCHC 34.7 % (32.0-36.0) 10/29/17 00:22 RDW 12.6 % (11.6-17.2) 10/29/17 00:22 Plt Count 375 th/mm3 (150-450) 10/29/17 00:22 MPV 8.5 fL (7.0-11.0) 10/29/17 00:22 Neut % (Auto) 81.0 % (16.0-70.0) H 10/29/17 00:22 Lymph % (Auto) 11.7 % (9.0-44.0) 10/29/17 00:22 [place] % (Auto) 6.7 % (0.0-8.0) 10/29/17 00:22 Eos % (Auto) 0.5 % (0.0-4.0) 10/29/17 00:22 Baso % (Auto) 0.1 % (0.0-2.0) 10/29/17 00:22 Neut # (Auto) 7.9 th/mm3 (1.8-7.7) H 10/29/17 00:22 Lymph # (Auto) 1.1 th/mm3 (1.0-4.8) 10/29/17 00:22 [place] # (Auto) 0.7 th/mm3 (0.0-0.9) 10/29/17 00:22 Eos # (Auto) 0.0 th/mm3 (0.0-0.4) 10/29/17 00:22 Baso # (Auto) 0.0 th/mm3 (0.0-0.2) 10/29/17 00:22 WBC Differential . 10/29/17 00:22 Differential Comment . 10/29/17 00:22 Sodium 135 meq/L (136-145) L 10/29/17 00:22 Potassium 3.7 meq/L (3.5-5.1) 10/29/17 00:22 Chloride 98 meq/L (98-107) 10/29/17 00:22 Carbon Dioxide 26.4 meq/L (21.0-32.0) 10/29/17 00:22 Anion Gap 11 meq/L (5-15) 10/29/17 00:22 BUN 13 mg/dL (7-18) 10/29/17 00:22 Creatinine 0.62 mg/dL (0.50-1.00) 10/29/17 00:22 Estimated GFR Greater than 89 mL/min (>89) 10/29/17 00:22 Random Glucose 93 mg/dL (74-106) 10/29/17 00:22 Calcium 9.4 mg/dL (8.5-10.1) 10/29/17:22 Total Bilirubin 0.6 mg/dL (0.2-1.0) 10/29/17 00:22 AST 26 U/L (15-37) 10/29/17:22 ALT 35 U/L (10-53) 10/29/17:22 Alkaline Phosphatase 87 U/L (45-117) 10/29/17: Troponin I Less than 0.02 ng/mL (0.02-0.05) L 10/29/17 00:22 Total Protein 7.8 g/dL (6.4-8.2) 10/29/17:22 Albumin 4.2 g/dL (3.4-5.0) 10/29/17:22 Lipase 190 U/L (73-393) 10/29/17 00:22 Urine Color Yellow (Yellw/Straw) 10/28/17 00:24 Urine Clarity Clear (Clear) 10/28/17 00:24 Urine pH 6.0 (5.0-8.5) 10/28/17 00:24 Ur Specific [place] 1.020 (1.002-1.035) 10/28/17 00:24 Urine Protein Trace mg/dL (Neg-Trace) 10/28/17 00:24 Urine Glucose (UA) Negative mg/dL (Negative) 10/28/17 00:24 Urine Ketones 40 mg/dL (Negative) H 10/28/17 00:24 Urine Occult Blood Negative (Negative) 10/28/17 00:24 Urine Nitrate Negative (Negative) 10/28/17 00:24 Urine Bilirubin Negative (Negative) 10/28/17 00:24 Urine Urobilinogen 0.2 mg/dL (Less than 2) 10/28/17 00:24 Ur Leukocyte Esterase Moderate (Negative) H 10/28/17 00:24 Urine RBC 0-3 /hpf (0-3) 10/28/17 00:24 Urine WBC 6-8 /hpf (0-5) H 10/28/17 00:24 Ur Squamous Epith Cells 0-5 /hpf (0-5) 10/28/17 00:24 Amorphous Sediment Occ /hpf (None) H 10/28/17 00:24 Hyaline Casts 0-3 /lpf (0-3) 10/28/17 00:24 Urine Yeast Occasional /hpf (None) H 10/28/17 00:24 Micro UA Comment Culture not ind 10/28/17 00:24 Ur Microscopic Review Microscopic reviewed 10/28/17 00:24 Urine Culture Comments Culture not ind 10/28/17 00:24 Assessment and Plan - Assessment (1) SBO (small bowel obstruction) Code(s): K56.609 - Unspecified intestinal obstruction, unspecified as to partial versus complete obstruction Status: Acute (2) History of colon cancer Code(s): Z85.038 - Personal history of other malignant neoplasm of large intestine Status: Acute (3) History of cholecystectomy Code(s): Z90.49 - Acquired absence of other specified parts of digestive tract Status: Acute - Plan 62-year-old lady who has a history of colon cancer with lesions in her liver that were being ablated by the [facility] She developed a small bowel obstruction on imaging unfortunately she cannot have an NG tube because of some nasal surgery in the past At this time she appears to be improved over the last 24 hours since being admitted Her abdomen is fairly benign with good bowel sounds Will order a upper GI small bowel follow-through to evaluate her GI tract Of note she had an MRI of her liver just 2 weeks ago by the [facility] and these liver lesions that were seen on this most recent CT scan - Attending Attestation CONSULTATION NOTE FOR SURGICAL ATTENDING, DR. SUKHDEEP FOSTER I attest that I had a [id number] encounter with the patient on the same day, and personally performed and documented my assessment and findings in the medical record. The following services were provided during this hospital visit: Chart data review, vital sign assessments/reviewing monitor data Review of consultations notes if present. Medication orders/review and/or management Ordering and/or reviewing lab tests Ordering and/or interpreting/reviewing x-rays and/or diagnostic studies Care of the patient and discussion of the patient with the care team Documentation time To help prompt me to consider important information that might be impacting today's encounter and assessment, Information from prior notes written by myself or my colleagues may have been "brought forward/copy and pasted" into today's note.
[2017-10-30] MEDS: Morphine Inj 4 MG/ML Vial IV.PUSH PRN ×4 (00:06→20:00)
[2017-10-30] MEDS: Piperacil/Tazo 4.5 GM Premix 4.5 GM/100 ML BAG IV.SIG SCH ×4 (04:45→20:02)
[2017-10-30 06:19] LABS: Baso % (Auto) 0.5 % (0.0-2.0); Eos # (Auto) 0.1 th/mm3 (0.0-0.4); Eos % (Auto) 0.8 % (0.0-4.0); Hematocrit 36.3 % (35.0-46.0); Hemoglobin 12.2 gm/dL (11.6-15.3); Lymph # (Auto) 1.6 th/mm3 (1.0-4.8); Lymph % (Auto) 21.9 % (9.0-44.0); Mean Corpuscular HGB Conc 33.7 % (32.0-36.0); Mean Corpuscular Hemoglobin 32.4 pg (27.0-34.0); Mean Corpuscular Volume 96.2 fL (80.0-100.0); Mean Platelet Volume 8.7 fL (7.0-11.0); Mono # (Auto) 0.7 th/mm3 (0.0-0.9); Mono % (Auto) 9.1 % (0.0-8.0); Neut # (Auto) 4.9 th/mm3 (1.8-7.7); Neut % (Auto) 67.7 % (16.0-70.0); Platelet Count 323 th/mm3 (150-450); Red Blood Count 3.77 mil/mm3 (4.00-5.30); Red Cell Distribution Width 12.2 % (11.6-17.2); White Blood Count 7.3 th/mm3 (4.0-11.0)
[2017-10-30 06:40] LABS: Alanine Aminotransferase 30 U/L (10-53); Albumin 3.5 g/dL (3.4-5.0); Alkaline Phosphatase 67 U/L (45-117); Anion Gap 9 meq/L (5-15); Aspartate Aminotransferase 24 U/L (15-37); Blood Urea Nitrogen 9 mg/dL (7-18); Calcium 8.3 mg/dL (8.5-10.1); Carbon Dioxide 23.9 meq/L (21.0-32.0); Chloride 107 meq/L (98-107); Glomerular Filtration Rate Greater Than 89 mL/min (>89); Glucose,Random 75 mg/dL (74-106); Potassium 3.5 meq/L (3.5-5.1); Sodium 140 meq/L (136-145); Total Protein 6.6 g/dL (6.4-8.2)
[2017-10-30] MEDS: Senna/Docusate Sodium 8.6/50 MG Tablet PO SCH ×2 (08:28→20:02)
[2017-10-30] MEDS: Sod Chloride 0.9% Inj 1,000 ML IV.CONT SCH ×2 (08:28→18:40)
--- NOTE | 2017-10-30 09:10 | P.PN ---
Subjective Interval history: 62-year-old female who is seen and examined today for follow-up on small bowel obstruction. Patient states that she is actually feels better today. She had small amount of flatulence. No bowel movement. Abdominal pain is improved. Vital signs are stable. Patient remains afebrile Physical Exam Vital signs: Vital Signs 10/29/17 10:03 10/29/17 11:30 10/29/17 14:47 Temperature 97.8 F Pulse Rate 79 Respiratory Rate 20 20 20 Blood Pressure 124/68 Pulse Oximetry 100 10/29/17 15:15 10/29/17 17:13 10/29/17 20:00 Temperature 97.6 F 99.2 F Pulse Rate 76 73 Respiratory Rate 20 20 16 Blood Pressure 122/64 127/59 L Pulse Oximetry 100 98 10/30/17 00:00 10/30/17 00:37 10/30/17 08:00 Temperature 98.3 F 98.3 F 98.5 F Pulse Rate 83 83 73 Respiratory Rate 16 16 19 Blood Pressure 156/72 H 156/72 H Pulse Oximetry 97 97 98 Intake & Output 10/29/17 10/30/17 10/30/17 18:59 06:59 18:59 Intake Total 200 / 200 1200 / 1200 1100 / 1100 Output Total 800 / 800 225 / 225 100 / 100 Balance -600 / -600 975 / 975 1000 / 1000 Weight 65.1 kg Intake: IV 200 / 200 1200 / 1200 1100 / 1100 NS Inj 1,000 ML @ 100 mls/hr IV 1000 / 1000 1000 / 1000 .CONT .Q10H ESTELITA Rx#:[id number] Zosyn 4.5 GM Premix 4.5 gm In 200 / 200 200 / 200 100 / 100 100 ml @ 200 mls/hr IV.SIG Q6H ESTELITA Rx#:[id number] Oral 0 / 0 Output: Urine 800 / 800 225 / 225 100 / 100 Other: # Voids 1 Narrative: GENERAL: Well-developed, well-nourished, in no acute distress. alert and orientated HEENT: Head is normocephalic without any lesions or masses noted. Facial features are symmetric. Eyes: Extraocular muscles are intact. Conjunctivae were clear. NECK: Supple without any masses. Trachea midline no deviation. No JVD, CARDIAC: Regular rhythm, regular rate. S1/S2 are heard. No murmurs gallops or rubs. LUNGS: Clear to auscultation bilaterally. No wheeze, rhonchi or rales. No use of accessory muscles on inspiration or expiration. ABDOMEN: Soft, nontender. Nondistended. Bowel sounds heard in all 4 quadrants. No organomegaly or masses. Negative rebound, negative guarding EXTREMITIES: No edema, pulses are equal bilaterally. No cyanosis or clubbing NEUROLOGY: Mood and affect appear appropriate. Cranial nerves II through XII grossly intact. Moving all extremities, speech is clear Results - Labs CBC & Chem 7: 10/30/17 04:40 10/30/17 04:40 Laboratory Results - last 24 hr 10/30/17 10/30/17 04:40 04:40 CBC w Diff Auto diff final WBC 7.3 RBC 3.77 L Hgb 12.2 Hct 36.3 MCV 96.2 MCH 32.4 MCHC 33.7 RDW 12.2 Plt Count 323 MPV 8.7 Neut % (Auto) 67.7 Lymph % (Auto) 21.9 [place] % (Auto) 9.1 H Eos % (Auto) 0.8 Baso % (Auto) 0.5 Neut # (Auto) 4.9 Lymph # (Auto) 1.6 [place] # (Auto) 0.7 Eos # (Auto) 0.1 Baso # (Auto) 0.0 WBC Differential . Differential Comment . Sodium 140 Potassium 3.5 Chloride 107 D Carbon Dioxide 23.9 Anion Gap 9 BUN 9 Creatinine 0.50 Estimated GFR Greater than 89 Random Glucose 75 Calcium 8.3 L D Total Bilirubin 0.8 AST 24 ALT 30 Alkaline Phosphatase 67 Total Protein 6.6 D Albumin 3.5 D - Imaging Impressions Abdomen X-Ray 10/29/17 08:31 CONCLUSION: Findings compatible with small bowel obstruction. No evidence of free air. Assessment and Plan - Assessment (1) Liver lesion Code(s): K76.9 - Liver disease, unspecified Status: Acute (2) SBO (small bowel obstruction) Code(s): K56.609 - Unspecified intestinal obstruction, unspecified as to partial versus complete obstruction Status: Acute - Plan Small bowel obstruction -Likely secondary to previous abdominal surgeries -Continue supportive care and bowel rest -Keep patient n.p.o., IV fluids, pain control -Patient continued on Zosyn -General surgery consulted for further recommendations -Small bowel follow-through ordered for today Multiple liver lesions -Patient does have history of colon cancer and liver lesions -Patient is followed by [facility] in which has been following her liver lesions for 2 years DVT prevention -Sequential compression devices
[2017-10-30] MEDS ORDERED: Diatrizoate Meglum/Diatrizoate Sod Liq 120 ML Bottle (for RAD diag) PO ONE (10:00)
--- NOTE | 2017-10-30 17:32 | P.PNGS ---
Subjective Patient reports: no flatus, no bowel movement, nausea, vomiting Interval history: DAILY PROGRESS NOTE FOR SURGICAL ATTENDING, DR. STONE ACOSTA Patient seen about 0715 Up to chair No issues Feeling better today Confused about SBFT today Physical Exam Vital signs: Vital Signs 10/29/17 20:00 10/30/17 00:00 10/30/17 00:37 Temperature 99.2 F 98.3 F 98.3 F Pulse Rate 73 83 83 Respiratory Rate 16 16 16 Blood Pressure 127/59 L 156/72 H 156/72 H Pulse Oximetry 98 97 97 10/30/17 08:00 10/30/17 16:00 Temperature 98.5 F 99.2 F Pulse Rate 73 95 H Respiratory Rate 19 21 Blood Pressure 148/72 H Pulse Oximetry 98 96 Intake & Output 10/29/17 10/30/17 10/30/17 18:59 06:59 18:59 Intake Total 200 / 200 1200 / 1200 1200 / 1200 Output Total 800 / 800 225 / 225 650 / 650 Balance -600 / -600 975 / 975 550 / 550 Weight 65.1 kg Intake: IV 200 / 200 1200 / 1200 1200 / 1200 NS Inj 1,000 ML @ 100 mls/hr IV 1000 / 1000 1000 / 1000 .CONT .Q10H ESTELITA Rx#:[id number] Zosyn 4.5 GM Premix 4.5 gm In 200 / 200 200 / 200 200 / 200 100 ml @ 200 mls/hr IV.SIG Q6H ESTELITA Rx#:[id number] Oral 0 / 0 0 / 0 Output: Urine 800 / 800 225 / 225 650 / 650 Other: # Voids 1 # Bowel Movements 0 Narrative: Alert and awake; up to chair Abd: soft non tender On reevaluation the patient patient has had a couple episodes of emesis after the upper GI started She has some mild abdominal cramping She thought she may have passed flatus earlier today but nothing since that time Abdominal exam slightly sore but no distention. She is up ambulating in the room - Additional findings Additional findings: ITS Impressions Abdomen/Pelvis CT 10/29/17 00:18 CONCLUSION: 1. Abnormally dilated loops of small bowel with air-fluid levels measuring up to 5 cm in size, suspicious for small bowel obstruction. 2. Multiple low density lesions in the liver measuring up to 2.9 cm. Evidence of right colon surgery. If there is history of colon cancer, these lesions would be suspicious for metastatic disease. Chest X-Ray 10/29/17 00:18 CONCLUSION: The lungs are clear. Abdomen X-Ray 10/29/17 08:31 CONCLUSION: Findings compatible with small bowel obstruction. No evidence of free air. I reviewed the up-to-date small bowel follow-through series with Dr. Marty Hsu the radiologist the study is incomplete at this point she has slow progression but she may have an obstruction. Assessment and Plan - Assessment (1) SBO (small bowel obstruction) Code(s): K56.609 - Unspecified intestinal obstruction, unspecified as to partial versus complete obstruction Status: Acute Plan: 62 year old female with complex past medical history; abdominal pain; SBO -Plan for SBFT today -Okay for no NGT as long as no nausea/vomiting -IVF -OOB as tolerated -Further recommendations after SBFT -Discussed with YOHANNES Jefferson (2) History of colon cancer Code(s): Z85.038 - Personal history of other malignant neoplasm of large intestine Status: Acute (3) History of cholecystectomy Code(s): Z90.49 - Acquired absence of other specified parts of digestive tract Status: Acute - Attending Attestation NOTE FOR SURGICAL ATTENDING, DR. STONE ACOSTA I had a long discussion with the daughter and the patient at the bedside I could not visualize the films in the computer and I was waiting for callback from Dr. Marty Hsu. After I left the hospital I discussed the x-ray findings with Dr. Marty Hsu concerned that she may require surgical intervention I called back to the nursing station and made arrangements for transfer to the main operating room for surgery for Monday tentatively set for 4 PM I agree with above assessment and plan except for the part that changed The exam, history, and the medical decision-making described in the above note were completed with the assistance of the mid-level provider. I reviewed and agree with the findings presented. I attest that I had a [id number] encounter with the patient on the same day, and personally performed and documented my assessment and findings in the medical record. The following services were provided during this hospital visit: Chart data review, vital sign assessments/reviewing monitor data Review of consultations notes if present. Medication orders/review and/or management Ordering and/or reviewing lab tests Ordering and/or interpreting/reviewing x-rays and/or diagnostic studies Care of the patient and discussion of the patient with the care team Documentation time To help prompt me to consider important information that might be impacting today's encounter and assessment, Information from prior notes written by myself or my colleagues may have been "brought forward/copy and pasted" into today's note.
[2017-10-31] MEDS: Morphine Inj 4 MG/ML Vial IV.PUSH PRN ×4 (00:36→11:59)
[2017-10-31] MEDS ORDERED: Chlorhexidine Gluconate 2% 1 Pack (2 Cloths) TOPICAL ONE (04:12)
[2017-10-31] MEDS: Piperacil/Tazo 4.5 GM Premix 4.5 GM/100 ML BAG IV.SIG SCH ×4 (04:14→20:37)
[2017-10-31] MEDS ORDERED: Sodium Chlor 0.9% Inj 500 ML IV.SIG SCH (05:00)
[2017-10-31] MEDS: Sod Chloride 0.9% Inj 1,000 ML IV.CONT SCH ×2 (07:49→15:46)
[2017-10-31] MEDS: Senna/Docusate Sodium 8.6/50 MG Tablet PO SCH ×2 (09:25→20:41)
--- NOTE | 2017-10-31 10:16 | FL ---
EXAM DATE: 10/30/2017 8:34 PM EDT AGE/SEX: 62 years / Female INDICATIONS: Obstruction. CLINICAL DATA: This is the patient's subsequent encounter. Patient reports that signs and symptoms h ave been present for 3 days and indicates a pain score of 2/10. MEDICAL/SURGICAL HISTORY: Carcinoma, colon. Colon resection. Appendectomy. Cholecystectomy. Rt adrenal gland removed COMPARISON: [facility], CT ABDOMEN & PELVIS W CONTRAST, 10/29/2017. . FLUORO TIME: 0 IMAGE COUNT: 0 CONTRAST: FINDINGS: Primary pay station attendant film reveals dilatation of proximal small bowel when compared to distal. Following oral ingestion of Gastrografin serial films were obtained for 26 hours. There is persistent dilatation of proximal small bowel when compared to distal suggesting recent high-grade partial obstruction. Some contrast is present in the colon. CONCLUSION: Findings consistent with a high-grade partial small bowel obstruction of mid to distal small bowel.. Electronically signed by: Kiel Hsu MD 10/31/2017 10:15 AM EDT
--- NOTE | 2017-10-31 11:06 | P.PN ---
Subjective Interval history: The patient is in bed she appears to not acute distress at this time. She has no nausea or vomiting at this time. Says feels a little bit improved today. Plan for surgery in the afternoon. Did vomit a lot yesterday. Did not pass any gas or any bowel movement. No fever or chills. Says abdominal pain is controlled by medications. Physical Exam Vital signs: Vital Signs 10/30/17 16:00 10/30/17 20:00 10/31/17 00:00 Temperature 99.2 F 98.6 F 98.3 F Pulse Rate 95 H 85 82 Respiratory Rate 21 18 17 Blood Pressure 148/72 H 165/85 H 142/82 H Pulse Oximetry 96 97 97 10/31/17 04:00 10/31/17 10:19 Temperature 97.7 F 98 F Pulse Rate 95 H 85 Respiratory Rate 17 16 Blood Pressure 124/65 139/74 Pulse Oximetry 96 98 Intake & Output 10/30/17 10/31/17 10/31/17 18:59 06:59 18:59 Intake Total 2200 / 2200 200 / 200 1100 / 1100 Output Total 650 / 650 Balance 1550 / 1550 200 / 200 1100 / 1100 Intake: IV 2200 / 2200 200 / 200 1100 / 1100 NS Inj 1,000 ML @ 100 mls/hr IV 2000 / 2000 1000 / 1000 .CONT .Q10H [facility] Rx#:[id number] Zosyn 4.5 GM Premix 4.5 gm In 200 / 200 200 / 200 100 / 100 100 ml @ 200 mls/hr IV.SIG Q6H [facility] Rx#:[id number] Oral 0 / 0 Output: Urine 650 / 650 Other: # Voids 1 2 Date of Last Bowel Movement 10/29/17 # Bowel Movements 0 # Emeses 3 Narrative: GENERAL: Well-developed, well-nourished, in no acute distress. alert and orientated HEENT: Head is normocephalic without any lesions or masses noted. Facial features are symmetric. Eyes: Extraocular muscles are intact. Conjunctivae were clear. NECK: Supple without any masses. Trachea midline no deviation. No JVD, CARDIAC: Regular rhythm, regular rate. S1/S2 are heard. No murmurs gallops or rubs. LUNGS: Clear to auscultation bilaterally. No wheeze, rhonchi or rales. No use of accessory muscles on inspiration or expiration. ABDOMEN: Soft, nontender. Nondistended. Bowel sounds heard in all 4 quadrants. No organomegaly or masses. Negative rebound, negative guarding EXTREMITIES: No edema, pulses are equal bilaterally. No cyanosis or clubbing NEUROLOGY: Mood and affect appear appropriate. Cranial nerves II through XII grossly intact. Moving all extremities, speech is clear Results - Labs CBC & Chem 7: 10/30/17 04:40 10/30/17 04:40 Laboratory Results - last 24 hr 10/31/17 08:26 Blood Type A Positive Blood Type Recheck Required Antibody Screen Negative - Imaging Impressions Small Bowel X-Ray 10/30/17 00:00 CONCLUSION: Findings consistent with a high-grade partial small bowel obstruction of mid to distal small bowel.. Assessment and Plan - Assessment (1) Liver lesion Code(s): K76.9 - Liver disease, unspecified Status: Acute (2) SBO (small bowel obstruction) Code(s): K56.609 - Unspecified intestinal obstruction, unspecified as to partial versus complete obstruction Status: Acute - Plan Small bowel obstruction -Likely secondary to previous abdominal surgeries -Continue supportive care and bowel rest -Keep patient n.p.o., IV fluids, pain control -Patient continued on Zosyn -General surgery consulted for further recommendations -Small bowel follow- -patient is scheduled for surgery tentatively today at 4 PM Multiple liver lesions -Patient does have history of colon cancer and liver lesions -Patient is followed by [facility] in which has been following her liver lesions for 2 years DVT prevention -Sequential compression devices Discussed with the patient, nurse, family at bedside.
--- NOTE | 2017-10-31 14:19 | ECG ---
Date Performed: 10/31/2017 Time Performed: 08:11:21 PTAGE: 62 years EKG: Sinus rhythm MARKED LEFT AXIS DEVIATION MODERATE T-WAVE ABNORMALITY, CONSIDER ANTERIOR ISCHEMIA ABNORMAL ECG Clin ical correlation is recommended NO PREVIOUS TRACING DOCTOR: Sergio Silva Interpretating Date/Time 10/31/2017 14:17:28
[2017-10-31] MEDS ORDERED: Bupivacaine/Epinephrine 0.5% Inj 50 ML Vial ONE (16:46)
[2017-10-31] MEDS ORDERED: HYDROmorphone PF Inj 2 MG/ML Vial ONE (17:04)
[2017-10-31] MEDS ORDERED: Succinylcholine Inj 100 MG/5 ML Syringe IV.PUSH ONE (17:20)
[2017-10-31] MEDS ORDERED: Lidocaine PF 1% Inj 5 ML Syringe INFILTRATN ONE (17:20)
[2017-10-31] MEDS ORDERED: Sugammadex Inj 200 MG/2 ML Vial IV.PUSH ONE (18:13)
--- NOTE | 2017-10-31 18:48 | P.OP ---
- Preoperative Diagnosis (1) SBO (small bowel obstruction) (2) History of colon cancer - Postoperative Diagnosis (1) SBO (small bowel obstruction) (2) History of colon cancer (3) History of cholecystectomy (4) Intra-abdominal adhesions Date of procedure: 10/31/17 Procedure: Diagnostic laparoscopy Laparoscopic lysis of adhesions Laparoscopic reduction of small bowel obstruction Anesthesia: NIGEL Surgeon: Sukhdeep Foster MD Pathology: other (adhesive band causing small bowel obstruction) Operation and Findings: Patient segment of the operating room placed in supine position After anesthesia her abdomen is prepped with Betadine. Anesthesia was able to place a nasogastric tube without any difficulty to decompress the stomach and got out about 400 cc of bilious fluid After prepping and draping after timeout and antibiotics were given We made an incision just below the umbilicus dissected down to the fascia which was incised 10 mm trocar was introduced under direct visualization multiple small bowel loops can be visualized and are dilated. We will check down the pelvis the sigmoid colon is decompressed and contracted there is some fluid that is evacuated. Dissecting up in the right upper quadrant were able to visualize she has had a cholecystectomy. There is a single adhesive band that is attached to the anterior abdominal wall down to the retroperitoneum where it is kinking some small bowel the dilated bowel is just proximal this in the compressed bowel is distal to this taking the harmonic scalpel we remove this adhesive band completely to decompress and release the band that is compressing the small bowel causing a small bowel obstruction the adhesive band is removed. There were minimal other adhesions in the abdomen. Recheck in the left upper quadrant able to visualize the stomach and the NG tube can is confirmed in the stomach the stomach is decompressed We are able to see that she is status post a right colon resection we can see the anastomosis and during evacuation of some fluid around the liver we see that air is flowing easily through the small bowel that was recently released of the adhesive band into the transverse colon thru the anastomosis. The transverse COLON is somewhat attached to the liver in the anterior abdominal wall by the falciform ligament. No other adhesive band noted. I do not see any evidence of metastatic disease in the peritoneal surfaces or the small bowel surfaces Down the pelvis I can see the uterus that appears normal After this was done and the feeling was that we released the small bowel obstruction we removed the trochars after the CO2 was removed. The umbilicus incision is closed with a 0 Vicryl at the fascial layer and the skin is closed with a 4-0 Vicryl Steri-Strips applied sterile bandage applied patient to procedure well end of dictation
[2017-10-31] MEDS ORDERED: fentaNYL Citrate Inj 100 MCG/2 ML Ampul ONE (18:51)
[2017-10-31] MEDS: Pantoprazole Inj 40 MG Vial IV.PUSH SCH (20:42)
[2017-11-01] MEDS: Sod Chloride 0.9% Inj 1,000 ML IV.CONT SCH ×3 (01:02→22:25)
[2017-11-01] MEDS: Piperacil/Tazo 4.5 GM Premix 4.5 GM/100 ML BAG IV.SIG SCH ×4 (03:06→21:37)
[2017-11-01 05:47] LABS: INR 1.2 Ratio; Prothrombin Time 12.2 sec (9.8-11.6)
[2017-11-01] MEDS: Senna/Docusate Sodium 8.6/50 MG Tablet PO SCH ×2 (09:25→21:37)
--- NOTE | 2017-11-01 10:16 | P.PN ---
Subjective Interval history: Seen later In bed . Had a large BM and feel smuch better No abd pain No more n/v NGT removed Awaiting for staton to be removed Feels much better today No fever or chills No n/v/d/c Physical Exam Vital signs: Vital Signs 10/31/17 10:19 10/31/17 12:00 10/31/17 18:43 Temperature 98 F 99.1 F 98.7 F Pulse Rate 85 78 112 H Respiratory Rate 16 16 18 Blood Pressure 139/74 140/67 121/58 L Pulse Oximetry 98 98 97 10/31/17 19:00 10/31/17 19:17 10/31/17 20:00 Temperature 98.7 F 97.3 F L Pulse Rate 99 H 93 H 90 Respiratory Rate 18 18 17 Blood Pressure 124/63 135/70 143/70 H Pulse Oximetry 97 97 100 11/01/17 00:00 11/01/17 04:00 11/01/17 08:00 Temperature 97.3 F L 97.6 F 98.3 F Pulse Rate 87 78 69 Respiratory Rate 16 16 16 Blood Pressure 112/57 L 133/63 140/67 Pulse Oximetry 99 97 98 Intake & Output 10/31/17 11/01/17 11/01/17 18:59 06:59 18:59 Intake Total 3700 / 3700 320 / 320 Output Total 900 / 900 700 / 700 Balance 2800 / 2800 -380 / -380 Weight 65.1 kg Intake: IV 2200 / 2200 200 / 200 NS Inj 1,000 ML @ 100 mls/hr IV 1999 / 1999 .CONT .Q10H [facility] Rx#:[id number] Zosyn 4.5 GM Premix 4.5 gm In 200 / 200 200 / 200 100 ml @ 200 mls/hr IV.SIG Q6H [facility] Rx#:[id number] Oral 120 / 120 Anesthesia Amount 1500 / 1500 Output: Urine 650 / 650 Urine Amount (Catheter) 300 / 300 Indwelling Urethral Catheter 300 / 300 Gastric Drainage 600 / 600 50 / 50 Nasogastric Tube 600 / 600 50 / 50 Other: Date of Last Bowel Movement 10/29/17 10/29/17 Narrative: GENERAL: Well-developed, well-nourished, in no acute distress. alert and orientated HEENT: Head is normocephalic without any lesions or masses noted. Facial features are symmetric. Eyes: Extraocular muscles are intact. Conjunctivae were clear. NECK: Supple without any masses. Trachea midline no deviation. No JVD, CARDIAC: Regular rhythm, regular rate. S1/S2 are heard. No murmurs gallops or rubs. LUNGS: Clear to auscultation bilaterally. No wheeze, rhonchi or rales. No use of accessory muscles on inspiration or expiration. ABDOMEN: Soft, nontender. Nondistended. Bowel sounds heard in all 4 quadrants. No organomegaly or masses. Negative rebound, negative guarding EXTREMITIES: No edema, pulses are equal bilaterally. No cyanosis or clubbing NEUROLOGY: Mood and affect appear appropriate. Cranial nerves II through XII grossly intact. Moving all extremities, speech is clear - Urinary Catheter Management Indwelling Urethral Catheter Cath placed during this visit: yes Reason for continuing: Other continuation reason Insertion date: 10/31/17 Results - Labs CBC & Chem 7: 11/01/17 10:40 11/01/17 10:40 Laboratory Results - last 24 hr 11/01/17 05:04 PT 12.2 H INR 1.2 - Imaging Impressions Small Bowel X-Ray 10/30/17 00:00 CONCLUSION: Findings consistent with a high-grade partial small bowel obstruction of mid to distal small bowel.. Assessment and Plan - Assessment (1) Liver lesion Code(s): K76.9 - Liver disease, unspecified Status: Acute (2) SBO (small bowel obstruction) Code(s): K56.609 - Unspecified intestinal obstruction, unspecified as to partial versus complete obstruction Status: Acute - Plan Small bowel obstruction 2/2 adhesions s/p lap surgery by Dr Foster -Likely secondary to previous abdominal surgeries -Continue supportive care and bowel rest -Keep patient n.p.o., IV fluids, pain control -Patient continued on Zosyn -General surgery consulted for further recommendations -Small bowel follow- -S/p surgery by Dr Foster on 10/31/17: Patient with adhesions Diagnostic laparoscopy Laparoscopic lysis of adhesions Laparoscopic reduction of small bowel obstruction Anesthesia: GETA Surgeon: Sukhdeep Foster MD Pathology: other (adhesive band causing small bowel obstruction) Multiple liver lesions -Patient does have history of colon cancer and liver lesions -Patient is followed by [facility] in which has been following her liver lesions for 2 years DVT prevention -Sequential compression devices Discussed with the patient, nurse, family at bedside.
[2017-11-01 11:03] LABS: Hemoglobin 10.9 gm/dL (11.6-15.3); Mean Corpuscular HGB Conc 34.2 % (32.0-36.0); Mean Corpuscular Hemoglobin 32.6 pg (27.0-34.0); Mean Corpuscular Volume 95.5 fL (80.0-100.0); Mean Platelet Volume 7.6 fL (7.0-11.0); Platelet Count 263 th/mm3 (150-450); Red Blood Count 3.35 mil/mm3 (4.00-5.30); Red Cell Distribution Width 12.9 % (11.6-17.2); White Blood Count 6.6 th/mm3 (4.0-11.0)
[2017-11-01 11:34] LABS: Anion Gap 11 meq/L (5-15); Blood Urea Nitrogen 8 mg/dL (7-18); Carbon Dioxide 26.1 meq/L (21.0-32.0); Chloride 109 meq/L (98-107); Glomerular Filtration Rate Greater Than 89 mL/min (>89); Glucose,Random 91 mg/dL (74-106); Sodium 146 meq/L (136-145)
--- NOTE | 2017-11-01 13:43 | P.PNGS ---
Subjective Interval history: DAILY PROGRESS NOTE FOR SURGICAL ATTENDING, DR. STONE ACOSTA Resting in bed Uncomfortable because of the NGT Had large BM Physical Exam Vital signs: Vital Signs 10/31/17 18:43 10/31/17 19:00 10/31/17 19:17 Temperature 98.7 F 98.7 F Pulse Rate 112 H 99 H 93 H Respiratory Rate 18 18 18 Blood Pressure 121/58 L 124/63 135/70 Pulse Oximetry 97 97 97 10/31/17 20:00 11/01/17 00:00 11/01/17 04:00 Temperature 97.3 F L 97.3 F L 97.6 F Pulse Rate 90 87 78 Respiratory Rate 17 16 16 Blood Pressure 143/70 H 112/57 L 133/63 Pulse Oximetry 100 99 97 11/01/17 08:00 Temperature 98.3 F Pulse Rate 69 Respiratory Rate 16 Blood Pressure 140/67 Pulse Oximetry 98 Intake & Output 10/31/17 11/01/17 11/01/17 18:59 06:59 18:59 Intake Total 3700 / 3700 320 / 320 Output Total 900 / 900 700 / 700 Balance 2800 / 2800 -380 / -380 Weight 65.1 kg Intake: IV 2200 / 2200 200 / 200 NS Inj 1,000 ML @ 100 mls/hr IV 1999 / 1999 .CONT .Q10H [facility] Rx#:[id number] Zosyn 4.5 GM Premix 4.5 gm In 200 / 200 200 / 200 100 ml @ 200 mls/hr IV.SIG Q6H [facility] Rx#:[id number] Oral 120 / 120 Anesthesia Amount 1500 / 1500 Output: Urine 650 / 650 Urine Amount (Catheter) 300 / 300 Indwelling Urethral Catheter 300 / 300 Gastric Drainage 600 / 600 50 / 50 Nasogastric Tube 600 / 600 50 / 50 Other: Date of Last Bowel Movement 10/29/17 10/29/17 Narrative: Alert and awake Abd: soft; mildly tender; lap sites c/d/i NGT to LIWS---minimal output Nuñez in place with clear yellow urine - Urinary Catheter Management Indwelling Urethral Catheter Cath placed during this visit: yes Reason for continuing: Other continuation reason Insertion date: 10/31/17 Assessment and Plan - Assessment (1) SBO (small bowel obstruction) Code(s): K56.609 - Unspecified intestinal obstruction, unspecified as to partial versus complete obstruction Status: Acute Plan: 62 year old female with complex past medical history; abdominal pain; SBO -POD1 dx lap; lap PAYAM; lap reduction of small bowel obstruction -Continue clears for lunch -DC NGT -DC Nuñez -Continue IVF -OOB as tolerated Discussed with daughter at bedside Making tremendous progress from yesterday Anticipate discharge in the next 24-[address] Gates - Attending Attestation NOTE FOR SURGICAL ATTENDING, DR. STONE ACOSTA I agree with above assessment and plan. The exam, history, and the medical decision-making described in the above note were completed with the assistance of the mid-level provider. I reviewed and agree with the findings presented. I attest that I had a [id number] encounter with the patient on the same day, and personally performed and documented my assessment and findings in the medical record. The following services were provided during this hospital visit: Chart data review, vital sign assessments/reviewing monitor data Review of consultations notes if present. Medication orders/review and/or management Ordering and/or reviewing lab tests Ordering and/or interpreting/reviewing x-rays and/or diagnostic studies Care of the patient and discussion of the patient with the care team Documentation time To help prompt me to consider important information that might be impacting today's encounter and assessment, Information from prior notes written by myself or my colleagues may have been "brought forward/copy and pasted" into today's note.
[2017-11-01] MEDS: Pantoprazole Inj 40 MG Vial IV.PUSH SCH (21:37)
[2017-11-02] MEDS: Sod Chloride 0.9% Inj 1,000 ML IV.CONT SCH ×2 (01:51→08:07)
[2017-11-02] MEDS: Piperacil/Tazo 4.5 GM Premix 4.5 GM/100 ML BAG IV.SIG SCH ×4 (02:44→20:24)
[2017-11-02] MEDS: Senna/Docusate Sodium 8.6/50 MG Tablet PO SCH ×2 (08:06→20:24)
--- NOTE | 2017-11-02 08:47 | P.PN ---
Subjective Interval history: Patient is in bed appears in nad was able to ambulate today No more nausea. Will try to eat regular food Physical Exam Vital signs: Vital Signs 11/01/17 12:00 11/01/17 16:00 11/01/17 20:00 Temperature 98.5 F 98.5 F 98.8 F Pulse Rate 70 64 63 Respiratory Rate 16 16 17 Blood Pressure 133/69 141/67 H 139/70 Pulse Oximetry 98 98 96 11/02/17 00:00 11/02/17 07:43 Temperature 98.0 F 97.6 F Pulse Rate 68 65 Respiratory Rate 17 18 Blood Pressure 116/59 L 133/70 Pulse Oximetry 96 96 Intake & Output 11/01/17 11/02/17 11/02/17 18:59 06:59 18:59 Intake Total 1800 / 1800 1200 / 1200 Output Total 300 / 300 Balance 1500 / 1500 1200 / 1200 Intake: IV 1200 / 1200 1200 / 1200 NS Inj 1,000 ML @ 100 mls/hr IV 1000 / 1000 1000 / 1000 .CONT .Q10H [facility] Rx#:[id number] Zosyn 4.5 GM Premix 4.5 gm In 200 / 200 200 / 200 100 ml @ 200 mls/hr IV.SIG Q6H [facility] Rx#:[id number] Oral 600 / 600 Output: Urine 300 / 300 Other: # Voids 2 4 Date of Last Bowel Movement 11/01/17 11/01/17 # Bowel Movements 1 4 Narrative: GENERAL: Well-developed, well-nourished, in no acute distress. alert and orientated HEENT: Head is normocephalic without any lesions or masses noted. Facial features are symmetric. Eyes: Extraocular muscles are intact. Conjunctivae were clear. NECK: Supple without any masses. Trachea midline no deviation. No JVD, CARDIAC: Regular rhythm, regular rate. S1/S2 are heard. No murmurs gallops or rubs. LUNGS: Clear to auscultation bilaterally. No wheeze, rhonchi or rales. No use of accessory muscles on inspiration or expiration. ABDOMEN: Soft, nontender. Nondistended. Bowel sounds heard in all 4 quadrants. No organomegaly or masses. Negative rebound, negative guarding EXTREMITIES: No edema, pulses are equal bilaterally. No cyanosis or clubbing NEUROLOGY: Mood and affect appear appropriate. Cranial nerves II through XII grossly intact. Moving all extremities, speech is clear - Urinary Catheter Management Indwelling Urethral Catheter Cath placed during this visit: yes, but has since been removed by the nurse Reason for continuing: Other continuation reason Insertion date: 10/31/17 Removal date: 11/01/17 Removal time: 13:00 Results - Labs CBC & Chem 7: 11/01/17 10:40 11/01/17 10:40 Laboratory Results - last 24 hr 11/01/17 11/01/17 10:40 10:40 WBC 6.6 RBC 3.35 L Hgb 10.9 L Hct 32.0 L MCV 95.5 MCH 32.6 MCHC 34.2 RDW 12.9 Plt Count 263 MPV 7.6 Sodium 146 H Potassium 3.0 L Chloride 109 H Carbon Dioxide 26.1 Anion Gap 11 BUN 8 Creatinine 0.48 L Estimated GFR Greater than 89 Random Glucose 91 Calcium 8.0 L Assessment and Plan - Assessment (1) Liver lesion Code(s): K76.9 - Liver disease, unspecified Status: Acute (2) SBO (small bowel obstruction) Code(s): K56.609 - Unspecified intestinal obstruction, unspecified as to partial versus complete obstruction Status: Acute - Plan Small bowel obstruction 2/2 adhesions s/p lap surgery by Dr Foster -Likely secondary to previous abdominal surgeries -Continue supportive care and bowel rest -Keep patient n.p.o., IV fluids, pain control -Patient continued on Zosyn -General surgery consulted for further recommendations -Small bowel follow- -S/p surgery by Dr Foster on 10/31/17: Patient with adhesions Diagnostic laparoscopy Laparoscopic lysis of adhesions Laparoscopic reduction of small bowel obstruction - Advance diet per surgical team recommendations Anesthesia: GETA Surgeon: Sukhdeep Foster MD Pathology: other (adhesive band causing small bowel obstruction) Multiple liver lesions -Patient does have history of colon cancer and liver lesions -Patient is followed by [facility] in which has been following her liver lesions for 2 years DVT prevention -Sequential compression devices Discussed with the patient, nurse, family at bedside. DC plan: Poss DC tomorrow if cleared by surgical team and improves
--- NOTE | 2017-11-02 13:34 | P.PNGS ---
Subjective Interval history: DAILY PROGRESS NOTE FOR SURGICAL ATTENDING, DR. STONE ACOSTA Resting in bed Daughter at bedside Wants a BLT sandwich Physical Exam Vital signs: Vital Signs 11/01/17 16:00 11/01/17 20:00 11/02/17 00:00 Temperature 98.5 F 98.8 F 98.0 F Pulse Rate 64 63 68 Respiratory Rate 16 17 17 Blood Pressure 141/67 H 139/70 116/59 L Pulse Oximetry 98 96 96 11/02/17 07:43 11/02/17 11:17 Temperature 97.6 F 98.2 F Pulse Rate 65 65 Respiratory Rate 18 16 Blood Pressure 133/70 150/71 H Pulse Oximetry 96 99 Intake & Output 11/01/17 11/02/17 11/02/17 18:59 06:59 18:59 Intake Total 1800 / 1800 1200 / 1200 100 / 100 Output Total 300 / 300 Balance 1500 / 1500 1200 / 1200 100 / 100 Intake: IV 1200 / 1200 1200 / 1200 100 / 100 NS Inj 1,000 ML @ 100 mls/hr IV 1000 / 1000 1000 / 1000 .CONT .Q10H [facility] Rx#:[id number] Zosyn 4.5 GM Premix 4.5 gm In 200 / 200 200 / 200 100 / 100 100 ml @ 200 mls/hr IV.SIG Q6H [facility] Rx#:[id number] Oral 600 / 600 Output: Urine 300 / 300 Other: # Voids 2 4 Date of Last Bowel Movement 11/01/17 11/01/17 # Bowel Movements 1 4 Narrative: Alert and awake Abd: soft; minimally tender; lap sites c/d/i - Urinary Catheter Management Indwelling Urethral Catheter Cath placed during this visit: yes, but has since been removed by the nurse Reason for continuing: Other continuation reason Insertion date: 10/31/17 Removal date: 11/01/17 Removal time: 13:00 Assessment and Plan - Assessment (1) SBO (small bowel obstruction) Code(s): K56.609 - Unspecified intestinal obstruction, unspecified as to partial versus complete obstruction Status: Acute Plan: 62 year old female with complex past medical history; abdominal pain; SBO -POD2 dx lap; lap PAYAM; lap reduction of small bowel obstruction -Advance to soft diet -DC IVF -OOB -Plan for home tomorrow after breakfast - Attending Attestation NOTE FOR SURGICAL ATTENDING, DR. STONE ACOSTA I agree with above assessment and plan. The exam, history, and the medical decision-making described in the above note were completed with the assistance of the mid-level provider. I reviewed and agree with the findings presented. I attest that I had a [id number] encounter with the patient on the same day, and personally performed and documented my assessment and findings in the medical record. The following services were provided during this hospital visit: Chart data review, vital sign assessments/reviewing monitor data Review of consultations notes if present. Medication orders/review and/or management Ordering and/or reviewing lab tests Ordering and/or interpreting/reviewing x-rays and/or diagnostic studies Care of the patient and discussion of the patient with the care team Documentation time To help prompt me to consider important information that might be impacting today's encounter and assessment, Information from prior notes written by myself or my colleagues may have been "brought forward/copy and pasted" into today's note.
[2017-11-02] MEDS: Pantoprazole Inj 40 MG Vial IV.PUSH SCH (20:23)
[2017-11-03] MEDS: Piperacil/Tazo 4.5 GM Premix 4.5 GM/100 ML BAG IV.SIG SCH ×2 (03:52→08:33)
--- NOTE | 2017-11-03 08:05 | P.PNGS ---
Subjective Interval history: DAILY PROGRESS NOTE FOR SURGICAL ATTENDING, DR. STONE ACOSTA Ready to go home daughter at bedside Physical Exam Vital signs: Vital Signs 11/02/17 11:17 11/02/17 15:15 11/02/17 16:00 Temperature 98.2 F 97.5 F L 97.5 F L Pulse Rate 65 66 66 Respiratory Rate 16 16 17 Blood Pressure 150/71 H 92/51 L 92/51 L Pulse Oximetry 99 98 98 11/02/17 20:00 11/03/17 00:00 11/03/17 04:00 Temperature 97.8 F 97.6 F 97.6 F Pulse Rate 73 65 58 L Respiratory Rate 20 16 16 Blood Pressure 124/59 L 140/68 137/85 Pulse Oximetry 99 99 98 11/03/17 08:00 Temperature 97.5 F L Pulse Rate 58 L Respiratory Rate 18 Blood Pressure 135/63 Pulse Oximetry 99 Intake & Output 11/02/17 11/03/17 11/03/17 18:59 06:59 18:59 Intake Total 1700 / 1700 680 / 680 Balance 1700 / 1700 680 / 680 Intake: IV 1200 / 1200 200 / 200 NS Inj 1,000 ML @ 100 mls/hr IV 1000 / 1000 .CONT .Q10H [facility] Rx#:[id number] Zosyn 4.5 GM Premix 4.5 gm In 200 / 200 200 / 200 100 ml @ 200 mls/hr IV.SIG Q6H [facility] Rx#:[id number] Oral 500 / 500 480 / 480 Other: # Voids 3 3 Date of Last Bowel Movement 11/02/17 Narrative: Alert and awake Abd: soft; non tender; lap sites c/d/i - Urinary Catheter Management Indwelling Urethral Catheter Cath placed during this visit: yes, but has since been removed by the nurse Reason for continuing: Other continuation reason Insertion date: 10/31/17 Removal date: 11/01/17 Removal time: 13:00 Assessment and Plan - Assessment (1) SBO (small bowel obstruction) Code(s): K56.609 - Unspecified intestinal obstruction, unspecified as to partial versus complete obstruction Status: Acute Plan: 62 year old female with complex past medical history; abdominal pain; SBO -POD3 dx lap; lap PAYAM; lap reduction of small bowel obstruction -Tolerated soft diet -OOB -DC home today -Clear for exercise started Nov 20 -Okay to shower; no bath/swimming pools/beach - Attending Attestation NOTE FOR SURGICAL ATTENDING, DR. STONE ACOSTA I agree with above assessment and plan. The exam, history, and the medical decision-making described in the above note were completed with the assistance of the mid-level provider. I reviewed and agree with the findings presented. I attest that I had a [id number] encounter with the patient on the same day, and personally performed and documented my assessment and findings in the medical record. The following services were provided during this hospital visit: Chart data review, vital sign assessments/reviewing monitor data Review of consultations notes if present. Medication orders/review and/or management Ordering and/or reviewing lab tests Ordering and/or interpreting/reviewing x-rays and/or diagnostic studies Care of the patient and discussion of the patient with the care team Documentation time To help prompt me to consider important information that might be impacting today's encounter and assessment, Information from prior notes written by myself or my colleagues may have been "brought forward/copy and pasted" into today's note.
--- NOTE | 2017-11-03 08:41 | P.DS ---
Date of admission: 10/29/17 02:47 Primary care physician: Rocky Duncan Brief History from admission: 62-year-old female with known history of colon cancer with partial colectomy, history of liver lesions in which she is being followed by [facility]. Patient states that she is in normal state of health until yesterday when she started developing nausea, vomiting, abdominal pain. Patient was only able to try to tolerate liquids, however she was unsuccessful and was unable to keep anything down so she came to emergency department for evaluation. Patient had workup done and was found to have a small bowel obstruction. CT scan also elicited multiple lesions on the liver. Patient states that she is followed by [facility] and gets monitored frequently. Patient states that she has had multiple liver lesions in the past and states that at [facility] they did ablation and biopsy. She is notified that they were benign lesions. She is just at [facility] and had MRI evaluation done in July of this year and was told that there were no new lesions. Upon evaluating the patient today she is laying in bed. Obvious discomfort from the bowel obstruction. Patient states that at a different hospital they had tried to place an NG tube but were unsuccessful. Patient is deferring NG tube at this time. Patient states that she had a small bowel movement yesterday. States that her bowels are quite irregular and can tell me if that was normal for her or not. Patient denies any hematemesis, melena, hematochezia. DS: Diagnosis - Discharge Diagnosis (1) Liver lesion Status: Acute (2) SBO (small bowel obstruction) Status: Acute DS: Medications - Discharge Medications Prescriptions: ciprofloxacin HCl 250 mg PO Q12HR #6 tab hydrocodone-acetaminophen 1 tab PO Q4H PRN #10 tab PRN Reason: acute post op pain exception hydrocodone-acetaminophen [[place]] 1 tab PO Q4H PRN #10 tab PRN Reason: acute post op pain exception DS: Summary Hospital Course: Small bowel obstruction 2/2 adhesions s/p lap surgery by Dr Foster -Likely secondary to previous abdominal surgeries -Continue supportive care and bowel rest -Keep patient n.p.o., IV fluids, pain control -Patient continued on Zosyn -General surgery consulted for further recommendations -Small bowel follow- -S/p surgery by Dr Foster on 10/31/17: Patient with adhesions Diagnostic laparoscopy Laparoscopic lysis of adhesions Laparoscopic reduction of small bowel obstruction - Advance diet per surgical team recommendations . Patient tolerates regular diet. Cleared by daryl for DC to follow up as OP Pathology: other (adhesive band causing small bowel obstruction) Multiple liver lesions -Patient does have history of colon cancer and liver lesions -Patient is followed by [facility] in which has been following her liver lesions for 2 years DVT prevention -Sequential compression devices Discussed with the patient, nurse, family at bedside. - Time Spent with Patient Total time spent providing and/or coordinating discharge services: Greater than 30 minutes - Quality: VTE Deep Vein Thrombosis/Pulmonary Embolism Present on Admission: No Exam Vital signs: Vital Signs 11/02/17 11:17 11/02/17 15:15 11/02/17 16:00 Temperature 98.2 F 97.5 F L 97.5 F L Pulse Rate 65 66 66 Respiratory Rate 16 16 17 Blood Pressure 150/71 H 92/51 L 92/51 L Pulse Oximetry 99 98 98 11/02/17 20:00 11/02/17 23:30 11/03/17 00:00 Temperature 97.8 F 97.6 F Pulse Rate 73 65 Respiratory Rate 20 18 16 Blood Pressure 124/59 L 140/68 Pulse Oximetry 99 99 11/03/17 04:00 11/03/17 08:00 Temperature 97.6 F 97.5 F L Pulse Rate 58 L 58 L Respiratory Rate 16 18 Blood Pressure 137/85 135/63 Pulse Oximetry 98 99 Intake & Output 11/02/17 11/03/17 11/03/17 18:59 06:59 18:59 Intake Total 1700 / 1700 680 / 680 Balance 1700 / 1700 680 / 680 Intake: IV 1200 / 1200 200 / 200 NS Inj 1,000 ML @ 100 mls/hr IV 1000 / 1000 .CONT .Q10H ESTELITA Rx#:[id number] Zosyn 4.5 GM Premix 4.5 gm In 200 / 200 200 / 200 100 ml @ 200 mls/hr IV.SIG Q6H ESTELITA Rx#:[id number] Oral 500 / 500 480 / 480 Other: # Voids 3 3 Date of Last Bowel Movement 11/02/17 Narrative: GENERAL: Well-developed, well-nourished, in no acute distress, alert and orientated CARDIAC: Regular rhythm, regular rate. S1/S2 are heard. No murmurs gallops or rubs. LUNGS: Clear to auscultation bilaterally. No wheeze, rhonchi or rales. No use of accessory muscles on inspiration or expiration. ABDOMEN: Soft, some tenderness at the surgical site with mild palpation. Nondistended. Bowel sounds heard in all 4 quadrants. Negative rebound, negative guarding EXTREMITIES: No edema, pulses are equal bilaterally. No cyanosis or clubbing. NEUROLOGY: Mood and affect appear appropriate. Cranial nerves II through XII grossly intact. Moving all extremities, speech is clear. Results Procedures completed during hospitalization: -S/p surgery by Dr Foster on 10/31/17: Patient with adhesions Diagnostic laparoscopy Laparoscopic lysis of adhesions Laparoscopic reduction of small bowel obstruction Completed studies during hospitalization: Pending at discharge 10/31/17 08:52 Surgical [PTH] Routine - Impressions ITS Impressions Abdomen/Pelvis CT 10/29/17 00:18 CONCLUSION: 1. Abnormally dilated loops of small bowel with air-fluid levels measuring up to 5 cm in size, suspicious for small bowel obstruction. 2. Multiple low density lesions in the liver measuring up to 2.9 cm. Evidence of right colon surgery. If there is history of colon cancer, these lesions would be suspicious for metastatic disease. Chest X-Ray 10/29/17 00:18 CONCLUSION: The lungs are clear. Abdomen X-Ray 10/29/17 08:31 CONCLUSION: Findings compatible with small bowel obstruction. No evidence of free air. Small Bowel X-Ray 10/30/17 00:00 CONCLUSION: Findings consistent with a high-grade partial small bowel obstruction of mid to distal small bowel.. Discharge Plan - Discharge Disposition Patient Disposition: 01 Discharge Home - Discharge Condition Condition: Stable - Discharge Order Discharge Orders: Discharge Order (Routine); Ordered 11/03/17 Ordered By: Jayleen Gates - Discharge Details Anticipated Discharge Date: 11/03/17 - Physicians Team Attending Provider: Jayleen Gates Other Providers: Sukhdeep Foster MD
[2017-11-03] MEDS ORDERED: Ciprofloxacin 250 MG Tablet PO SCH (09:00)
[2017-11-03] MEDS: Senna/Docusate Sodium 8.6/50 MG Tablet PO SCH (09:03)
== END 2017-11-03 10:17 | disposition home or self-care (01) ==
LOC: PHED 22:16 → PHEDA 10-29 02:47 → PH3 10-29 03:47 → N06 10-30 21:45
PROVIDERS: ADMIT Hospitalist; ATTEND Hospitalist